=== PATIENT | male | born 1980 | race African-American/Black ===

== ENCOUNTER 2022-11-26 13:20 | Emergency (ER) | payer MEDICAID ==
[~2022-11-26] VITALS: Ht 182.9 cm; Wt 140.6 kg
[2022-11-26 13:42] VITALS: BP 141/81; PULSE 90; RESP 16; TEMP 98.5; O2SAT 100
[2022-11-26 14:36] LABS: BASOPHILS % 0.9 % (0.0-2.0); EOSINOPHILS % 2.1 % (0.0-5.0); HEMATOCRIT. 43.8 % (42.0-52.0); HEMOGLOBIN. 14.3 g/dL (14.0-18.0); LYMPHOCYTES % 24.7 % (20.0-50.0); MEAN CORPUSCULAR HEMOGLOBIN 27.5 pg (28.0-32.0); MEAN CORPUSCULAR VOLUME 84.5 fL (80.0-94.0); MEAN PLATELET VOLUME 8.2 fl (7.4-10.4); MONOCYTES % 7.3 % (2.0-8.0); PLATELET 327 x1000/uL (130-400); RED BLOOD CELL COUNT 5.18 mill/uL (4.7-6.1); RED CELL DISTRIBUTION WIDTH 14.6 % (11.6-14.6)
[2022-11-26 15:13] LABS: CHLORIDE 107 mEq/L (98-107)
[2022-11-26] MEDS ORDERED: FAMOTIDINE 20MG TABLET PO ONE (16:15)
[2022-11-26] MEDS ORDERED: FAMO-135 MT (17:16)
== END 2022-11-26 17:51 | disposition home or self-care (01) ==
LOC: ER 13:20
DX: R10.13 Epigastric pain (principal); R11.0 Nausea; R19.7 Diarrhea, unspecified
CPT/HCPCS: 36415; 76705; 80053; 84484; 85025; 99284

== ENCOUNTER 2023-03-15 11:37 | Emergency (ER) | payer BC, MEDICAID ==
[~2023-03-15] VITALS: Ht 182.9 cm; Wt 140.0 kg
[~2023-03-15 11:37] MED LIST: FAMO-135 MT
[2023-03-15 11:52] VITALS: BP 152/103; PULSE 98; RESP 20; O2SAT 98
[2023-03-15 12:15] VITALS: TEMP 98.2
[2023-03-15] MEDS ORDERED: ACETAMINOPHEN 325MG TABLET PO ONE (12:15)
[2023-03-15] MEDS ORDERED: IBUP-2029 MT (12:48)
== END 2023-03-15 13:07 | disposition home or self-care (01) ==
LOC: ER 11:37
DX: M77.31 Calcaneal spur, right foot (principal)
CPT/HCPCS: 73630; 99283

== ENCOUNTER 2023-06-22 22:21 | Emergency (ER) | payer BC ==
[~2023-06-22] VITALS: Ht 182.9 cm; Wt 127.0 kg
[~2023-06-22 22:21] MED LIST changes: +IBUP-2029 MT
[2023-06-22 22:24] VITALS: O2SAT 98
[2023-06-23] MEDS ORDERED: METOCLOPRAMIDE HCL 10MG/2ML VIAL IM ONE
[2023-06-23 00:04] LABS: BASOPHILS % 1.3 % (0.0-2.0); EOSINOPHILS % 1.1 % (0.0-5.0); HEMOGLOBIN. 13.6 g/dL (14.0-18.0); LYMPHOCYTES % 17.5 % (20.0-50.0); MEAN CORPUSCULAR HEMOGLOBIN 27.6 pg (28.0-32.0); MEAN CORPUSCULAR HGB CONC 31.7 g/dL (31.0-37.0); MEAN CORPUSCULAR VOLUME 87.1 fL (80.0-94.0); MONOCYTES % 5.5 % (2.0-8.0); NEUTROPHILS % 74.6 % (40.0-76.0); PLATELET 341 x1000/uL (130-400); RED BLOOD CELL COUNT 4.93 mill/uL (4.7-6.1); RED CELL DISTRIBUTION WIDTH 14.3 % (11.6-14.6)
[2023-06-23] MEDS ORDERED: ONDANSETRON 4MG ODT PO ONE (00:15)
[2023-06-23 00:28] LABS: ALANINE AMINOTRANSFERASE 10 IU/L (10-49); ALBUMIN 4.3 g/dL (3.2-4.8); ASPARTATE AMINOTRANSFERASE 20 IU/L (<34); BILIRUBIN TOTAL 0.4 mg/dL (0.1-1.0); CALCIUM 9.3 mg/dL (8.7-10.4); CARBON DIOXIDE 32 mEq/L (21-32); CHLORIDE 100 mEq/L (98-107); CREATININE 1.1 mg/dL (0.6-1.3); GLUCOSE 133 mg/dL (70-105); POTASSIUM 3.6 mEq/L (3.5-5.1); PROTEIN TOTAL 7.6 g/dL (6.0-8.3); SODIUM 136 mEq/L (136-145); TROPONIN I HIGH SENSITIVITY 5 ng/L (3.0-53); UREA NITROGEN BLOOD 9 mg/dL (9-23)
[2023-06-23 01:00] VITALS: BP 155/88; PULSE 98; RESP 20; TEMP 98.7
[2023-06-23] MEDS ORDERED: METO-293 MT (01:07)
[2023-06-23] MEDS ORDERED: OMEP20CA14 MT (20:07)
[2023-06-23] MEDS ORDERED: FAMOTIDINE 20MG TABLET PO SCH (21:00)
== END 2023-06-23 01:20 | disposition home or self-care (01) ==
LOC: ER 22:28
DX: R06.6 Hiccough (principal); F19.90 Other psychoactive substance use, unspecified, uncomplicated
CPT/HCPCS: 99285; 71045; 80053; 83880; 85025; 84484; 36415; 93005; 96372; Q0162; J2765

== ENCOUNTER 2023-06-23 12:06 | Emergency (ER) | payer BC ==
[~2023-06-23] VITALS: Ht 182.9 cm; Wt 136.0 kg
[~2023-06-23 12:06] MED LIST changes: +METO-293 MT
[2023-06-23 12:23] VITALS: BP 128/75; PULSE 84; RESP 16; TEMP 98.2; O2SAT 97
[2023-06-23 13:21] LABS: BASOPHILS % 0.8 % (0.0-2.0); EOSINOPHILS % 1.1 % (0.0-5.0); HEMATOCRIT. 42.7 % (42.0-52.0); HEMOGLOBIN. 13.8 g/dL (14.0-18.0); MEAN CORPUSCULAR HEMOGLOBIN 27.3 pg (28.0-32.0); MEAN CORPUSCULAR HGB CONC 32.2 g/dL (31.0-37.0); MEAN CORPUSCULAR VOLUME 84.7 fL (80.0-94.0); MEAN PLATELET VOLUME 8.5 fl (7.4-10.4); MONOCYTES % 5.3 % (2.0-8.0); NEUTROPHILS % 80.8 % (40.0-76.0); PLATELET 343 x1000/uL (130-400); RED BLOOD CELL COUNT 5.04 mill/uL (4.7-6.1); RED CELL DISTRIBUTION WIDTH 14.2 % (11.6-14.6); WHITE BLOOD COUNT 15.4 x1000/uL (4.5-11.0)
[2023-06-23 13:31] LABS: PROTHROMBIN TIME 10.6 sec (9.6-11.0)
[2023-06-23 13:44] LABS: ALANINE AMINOTRANSFERASE 11 IU/L (10-49); ALBUMIN 4.4 g/dL (3.2-4.8); ASPARTATE AMINOTRANSFERASE 21 IU/L (<34); BILIRUBIN TOTAL 0.6 mg/dL (0.1-1.0); CALCIUM 9.3 mg/dL (8.7-10.4); CARBON DIOXIDE 30 mEq/L (21-32); CHLORIDE 98 mEq/L (98-107); CREATININE 1.3 mg/dL (0.6-1.3); GLUCOSE 114 mg/dL (70-105); POTASSIUM 3.2 mEq/L (3.5-5.1); PROTEIN TOTAL 7.8 g/dL (6.0-8.3); SODIUM 136 mEq/L (136-145); TROPONIN I HIGH SENSITIVITY 4 ng/L (3.0-53); UREA NITROGEN BLOOD 11 mg/dL (9-23)
[2023-06-23] MEDS: POTASSIUM CHLORIDE 20MEQ TABLET SR PO ONE (17:28)
[2023-06-23] MEDS ORDERED: OMEP20CA14 MT (20:07)
== END 2023-06-23 20:58 | disposition home or self-care (01) ==
LOC: ER 12:06
DX: R06.6 Hiccough (principal); K44.9 Diaphragmatic hernia without obstruction or gangrene
CPT/HCPCS: 36415; 71045; 71250; 80053; 84484; 85025; 93005; 99285